=== PATIENT | male | born 1955 | race Caucasian/White ===

== ENCOUNTER 2019-02-28 10:42 | Inpatient (IN) ==
[2019-02-28] MEDS ORDERED: Ipratropium/Albuterol Neb 3 ML IH ONE (10:52)
[2019-02-28] MEDS ORDERED: methylPREDNISolone 125 MG/2 ML VIAL IVP ONE (10:52)
[2019-02-28 11:21] LABS: Basophils # 0.1 K/mcL (0.0-0.2); Basophils % 0.5 %; Eosinophils # 0.2 K/mcL (0.0-0.6); Eosinophils % 1.1 %; Hematocrit 35.8 % (37.5-50.1); Hemoglobin 11.7 g/dL (12.9-16.9); Immature Granulocytes % 0.9 % (0-4); Lymphocytes # 1.4 K/mcL (0.6-4.6); Lymphocytes % 9.8 %; Mean Corpuscular HGB Conc 32.7 g/dL (31.6-35.5); Mean Corpuscular Hemoglobin 28.1 pg (28.0-33.3); Mean Corpuscular Volume 85.9 fL (83.0-100.0); Mean Platelet Volume 9.6 fL (9.4-12.4); Monocytes # 1.2 K/mcL (0.0-1.3); Monocytes % 8.4 %; Neutrophils # 11.3 K/mcL (1.6-8.9); Platelet Count 605 K/mcL (140-400); Red Blood Count 4.17 M/mcL (4.19-5.50); Red Cell Distribution Width 13.6 % (11.5-14.5); Segmented Neutrophils % 79.3 %; White Blood Count 14.3 K/mcL (4.3-11.1)
[2019-02-28] MEDS ORDERED: Isovue-370 500 ML BOTTLE IVP ONE (11:40)
[2019-02-28 11:44] LABS: BUN/Creatinine Ratio 18 (6-26); Blood Urea Nitrogen 11 mg/dL (8-23); Calcium 8.9 mg/dL (8.6-10.3); Carbon Dioxide 28 mEq/L (23-29); Chloride 95 mEq/L (98-107); Glucose 168 mg/dL (70-105); Osmolality,Calculated 273 (280-300); Potassium 3.6 mEq/L (3.5-5.1); Sodium 130 mEq/L (136-145); Troponin I < 0.03 ng/mL (< 0.04); eGFR For African Americans > 60 (> 60); eGFR For Non-African Americans > 60 (> 60)
[2019-02-28] MEDS ORDERED: cefTRIAXone 1,000 MG in Water for inj. (sterile) 10 ML IVP ONE (13:21)
[2019-02-28] MEDS ORDERED: Azithromycin 500 MG in 0.9 % Sodium Chloride 250 ML IVPB ONE (13:21)
--- NOTE | 2019-02-28 13:23 | Emergency Department Note ---
Disposition Clinical Impression: Dyspnea Qualifiers: Dyspnea type: unspecified Qualified Code(s): R06.00 - Dyspnea, unspecified Disposition: Admitted As Inpatient Condition: Fair Time of Disposition: 13:39 General Adult HPI - General Chief complaint: ED Shortness of Breath/Dyspnea Stated complaint: SARWAT Time Seen by Provider: 02/28/19 10:44 Source: patient, EMS Mode of arrival: private vehicle Limitations: no limitations Nursing Notes Reviewed: Yes Vital Signs Reviewed: Yes - History of Present Illness HPI Narrative: 63-year-old male who had lung cancer and states that he "beat lung cancer" proximal probably 5 years ago that reports he has had increasing shortness of breath and difficulty breathing which has been going on over the last 2 weeks to 3 weeks. Patient reports he has not been seen by in 5 years but he occasionally uses his 's inhaler whenever he feels short of breath. He does note some increased white sputum production over the last several weeks. He denies any fevers or chills. He states that he has been working on his motor and laying down a lot so he was worried that he might of got pneumonia from that. Pain Scale: 7 - Related Data Home Medications Medication Instructions Recorded Confirmed Ipratropium/Albuterol Neb [Duoneb] 3 ml IH BID 02/28/15 01/12/17 Prochlorperazine Maleate 10 mg PO Q6HR PRN 02/28/15 01/12/17 [Compazine] Previous Rx's Medication Instructions Recorded Lactose-Reduced Food [Ensure 1 bottle PO TID #90 can 07/30/15 Original] Albuterol Sulfate [Proventil Hfa] 17 gm IH Q4-6H PRN #1 hfa.aer.ad 10/21/15 Sertraline [Zoloft] 100 mg PO DAILY #30 tablet 04/14/16 Albuterol Sulfate [Ventolin Hfa] 8 gm IH BID PRN #1 hfa.aer.ad 11/10/16 Docusate Sodium 2 tab PO DAILY PRN #60 capsule 11/10/16 Magic Mouthwash 5 - 10 ml PO TID PRN #480 ml 11/10/16 Allergies Allergy/AdvReac Type Severity Reaction Status Date / Time Penicillins Allergy Unknown Rash Verified 06/18/16 13:04 Review of Systems: In addition to that documented in the HPI above, the additional ROS was obtained: Constitutional: Denies fevers or chills Eyes: Denies vision changes ENMT: Denies sore throat CV: Denies chest pain Resp: Reports SOB and increased sputum production GI: Denies vomiting or diarrhea : Denies painful urination MSK: Denies recent trauma Skin: Denies new rashes Neuro: Denies new numbness or tingling or weakness Endocrine: Denies unexpected weight loss Heme: Denies bleeding disorders Past Medical History - Past Medical History Attestation: Yes The following information was validated with the patient. Medical history: Reports: cancer - Social History Smoking Status: Current some day smoker Alcohol use: Reports: none Drug use: Reports: none Physical Exam General: A&O x 3. No acute distress. Well developed, well nourished. Head: atraumatic, normocephalic. ENT: No conjunctival injection, no scleral icterus. PERRLA. EOMI. Oropharynx non- erythematous. mucous membranes moist. Neuro: No focal deficits, no speech deficit, no facial droop, mentating well. BUE/BLE Str 5/5. Pulm: Decreased lung sounds on the right, with wheezing appreciated in right middle and right upper lobe. Patient also has diffuse end expiratory wheezing diffusely. Cardio: Tachycardia. Chest not tender to palpation. Abd: Soft, non-distended. Normoactive bowel sounds. Non-tender to palpation. No guarding. Non rigid. Extremities: Radial pulses 2+ mallorie, dorsalis pedis/posterior tibialis 2+ mallorie. No LE edema. No cyanosis, clubbing. Skin: warm, dry, intact. No rashes. Psych: Appropriate mood and affect. Answers questions appropriately. Cooperative with exam. - General Limitations: no limitations General appearance: alert, in no apparent distress Course Vital Signs Temperature 99.2 F 02/28/19 10:47 Pulse Rate 110 02/28/19 10:47 Respiratory Rate 19 02/28/19 10:47 Blood Pressure 107/81 02/28/19 10:47 O2 Sat by Pulse Oximetry 99 02/28/19 10:47 Temperature 97.9 F 02/28/19 15:21 Pulse Rate 95 02/28/19 15:21 Respiratory Rate 24 02/28/19 15:21 Blood Pressure 100/72 02/28/19 15:21 O2 Sat by Pulse Oximetry 94 02/28/19 15:21 Oxygen Delivery Oxygen Delivery Room Air Medical Decision Making - MDM Narrative Medical decision making narrative: 63-year-old male with past medical history of lung cancer that was in remission as of 5 years ago but has not been seen by a doctor since then who reports increasing shortness of breath over the last 2-3 weeks. He was worried he has pneumonia, we will obtain a CBC, BMP, lactic acid, blood cultures, chest x-ray, EKG. Additionally given patient's tachycardia there is some concern that he may have a blood clot so we will obtain a CTA given his high risk. Patient CTA was negative for blood clot but did show a mass at the hilum that was suspicious for malignancy. Distally there was some fluid within the lungs that was concerning for pulmonary effusion could not be distinguished from infection. Patient was treated with 3 DuoNeb's, 125 of Solu-Medrol, as well as antibiotics. Patient remained somewhat tachycardic and dyspneic while he was in the department, patient was admitted to the hospitalist Dr. Newton who agreed to accept the patient to his service. Results of the workup including any imaging and/or labwork was shared with the patient at bedside. Patient was given an opportunity to ask questions at bedside and all of their concerns were addressed. Patient verbalized understanding and agreement with plan of care. Pt remained stable while in the department. - Medical Records Medical records reviewed: Yes I reviewed the patient's medical records. - Lab Data Lab results reviewed: Yes I reviewed the patient's lab results. Result diagrams: 02/28/19 11:01 02/28/19 11:01 Lab Results 02/28/19 02/28/19 02/28/19 Range/Units 11:01 11:01 11: WBC 14.3 H (4.3-11.1) K/mcL RBC 4.17 L (4.19-5.50) M/mcL Hgb 11.7 L (12.9-16.9) g/dL Hct 35.8 L (37.5-50.1) % MCV 85.9 (83.0-100.0) fL MCH 28.1 (28.0-33.3) pg MCHC 32.7 (31.6-35.5) g/dL RDW 13.6 (11.5-14.5) % Plt Count 605 H (140-400) K/mcL MPV 9.6 (9.4-12.4) fL Immature Gran % 0.9 (0-4) % Seg Neutrophils % 79.3 % Lymphocytes % 9.8 % Monocytes % 8.4 % Eosinophils % 1.1 % Basophils % 0.5 % Neutrophils # 11.3 H (1.6-8.9) K/mcL Lymphocytes # 1.4 (0.6-4.6) K/mcL Monocytes # 1.2 (0.0-1.3) K/mcL Eosinophils # 0.2 (0.0-0.6) K/mcL Basophils # 0.1 (0.0-0.2) K/mcL Sodium 130 L (136-145) mEq/L Potassium 3.6 (3.5-5.1) mEq/L Chloride 95 L (98-107) mEq/L Carbon Dioxide 28 (23-29) mEq/L BUN 11 (8-23) mg/dL Creatinine 0.62 L (0.70-1.30) mg/dL Est GFR ( Amer) > 60 (> 60) Est GFR (Non-Af Amer) > 60 (> 60) BUN/Creatinine Ratio 18 (6-26) Glucose 168 H (70-105) mg/dL Calculated Osmolality 273 L (280-300) Lactic Acid 1.9 (0.5-2.2) mmol/L Calcium 8.9 (8.6-10.3) mg/dL Troponin I < 0.03 (< 0.04) ng/mL B-Natriuretic Peptide (Less than 100) pg/mL Procalcitonin (0.00-0.15) ng/mL 02/28/19 02/28/19 Range/Units 11:01 11:01 WBC (4.3-11.1) K/mcL RBC (4.19-5.50) M/mcL Hgb (12.9-16.9) g/dL Hct (37.5-50.1) % MCV (83.0-100.0) fL MCH (28.0-33.3) pg MCHC (31.6-35.5) g/dL RDW (11.5-14.5) % Plt Count (140-400) K/mcL MPV (9.4-12.4) fL Immature Gran % (0-4) % Seg Neutrophils % % Lymphocytes % % Monocytes % % Eosinophils % % Basophils % % Neutrophils # (1.6-8.9) K/mcL Lymphocytes # (0.6-4.6) K/mcL Monocytes # (0.0-1.3) K/mcL Eosinophils # (0.0-0.6) K/mcL Basophils # (0.0-0.2) K/mcL Sodium (136-145) mEq/L Potassium (3.5-5.1) mEq/L Chloride (98-107) mEq/L Carbon Dioxide (23-29) mEq/L BUN (8-23) mg/dL Creatinine (0.70-1.30) mg/dL Est GFR ( Amer) (> 60) Est GFR (Non-Af Amer) (> 60) BUN/Creatinine Ratio (6-26) Glucose (70-105) mg/dL Calculated Osmolality (280-300) Lactic Acid (0.5-2.2) mmol/L Calcium (8.6-10.3) mg/dL Troponin I (< 0.04) ng/mL B-Natriuretic Peptide 89 (Less than 100) pg/mL Procalcitonin 0.27 H (0.00-0.15) ng/mL - Radiology Data Radiology results reviewed: Yes I reviewed the patient's radiology results. Chest X-Ray 02/28/19 11:05 IMPRESSION: 1. Right suprahilar opacities, which may represent pneumonia or post radiation change. 2. Scarring and atelectasis at the right lung base with possible small right pleural effusion. D/ / Chavez Loo MD / Chavez Loo MD Interpreting Provider: Chavez Loo MD Chest CTA 02/28/19 12:43 IMPRESSION: Masslike opacity within the right hilum and lower lobe which is concerning for malignancy and possibly superimposed infectious process. Loculated right-sided pleural effusion. Pretracheal and subcarinal lymphadenopathy. 1.1 cm left upper lobe nodule. 7 mm left lower lobe nodule. D/ / Antione Torrez MD / Antione Torrez MD Interpreting Provider: Antione Torrez MD - EKG Data EKG #1 EKG attestation: Yes I reviewed and interpreted this EKG. EKG results narrative: Heart rate 106, rhythm sinus tachycardia, axis normal. Intervals within normal limits. No ST segment elevation or depression noted. When compared with previous EKG dated 10/17/2014 the previous EKG shows sinus rhythm with septal ST elevation which is not noted on the current study. Attestation Statement - Attestation Attestation: I, Adrian Brown, examined this patient and my medical decision-making was reviewed with the LINER MAN/PA/Advanced Practice Nurse/Resident Physician. I agree with the documented findings, disposition and treatment plan as described except to the extent set forth below. 63-year-old male presents emergency Department with concerns of increasing shortness of breath. Patient states symptoms have been worsening over the past week. Patient reports a cough that is productive of yellow-green sputum. He has a history of lung cancer however states that he is "cancer free" as of 2012. He has not followed up since that time. CTA of the chest today does not show evidence of acute PE however it shows that he has a mass consistent with malignancy with possible superimposed infection. He has elevation of his white blood cell count. He started on antibiotics in the emergency department for possible community-acquired pneumonia. He will be admitted to the hospitalist for further care and evaluation for continuation of care of both his possible infection and is likely malignancy. Patient was updated regarding the CT and laboratory results.
[2019-02-28] MEDS ORDERED: Naloxone 0.4 MG/ML INJ IVP PRN (14:41)
[2019-02-28] MEDS ORDERED: traMADol 50 MG TABLET PO PRN (14:41)
[2019-02-28] MEDS ORDERED: Levalbuterol Neb 0.63 MG/3 ML IH PRN (14:45)
--- NOTE | 2019-02-28 15:34 | Pulmonology Consult Note ---
Date of Encounter: 02/28/19 Time of Encounter: 15:33 Assessment and Plan (1) Hilar mass Current Visit: Yes Status: Acute I reviewed his CT scan and clearly malignancy remains high in the differential. And I suspect that he has had reoccurrence or new primary tumor. He also has a lung nodule on the left which may be indicative of metastatic disease. Patient will benefit from undergoing bronchoscopy with endobronchial ultrasound for evaluation of the right lung mass as well as the enlarged lymph nodes. We will try to get this scheduled tomorrow but at this point I cannot definitively say and telemetry discussed with her interventional turning machine operator about when this procedure can be done. Would keep nothing by mouth at midnight for this reason and if we can schedule I will alert the patient personally in the morning as not to interrupt his diet unnecessarily. (2) Pleural effusion Current Visit: Yes Status: Acute This is a loculated right-sided pleural effusion which in this context could be a complicated process as empyema or complicated effusion recommend aspiration by interventional radiology for further evaluation. At this point I think it empyema is less likely given clinical presentation but it is possible. Please send the following studies including cytology, cell count and Gram stain culture LDH total protein pH and glucose (3) Pneumonia Current Visit: Yes Status: Acute Likely postobstructive pneumonia he is on antimicrobial coverage for community associated organisms which is reasonable at this time. Was recommended 70 percussive tone and MRSA nasal swab strep and legionella urinary antigens along with basic Gram stain from sputum. Blood cultures if not already obtained. Qualifiers: Laterality: right Lung location: unspecified part of lung Qualified Code(s): J18.9 - Pneumonia, unspecified organism (4) COPD exacerbation Current Visit: Yes Status: Acute Recommend scheduling of prednisone 40 mg orally to be given daily while inpatient start Symbicort 160/4.52 puffs twice a day and would also recommend initiation of a duo nebs every 6 hours with hourly albuterol as needed (5) History of lung cancer Current Visit: Yes Status: Acute (6) Tobacco abuse Current Visit: Yes Status: Acute Tobacco cessation counseling given Thank you for the consultation pulmonary will continue to follow History of Present Illness Consult date: 02/28/19 Requesting physician: Clifton Ross Reason for consult: pleural effusion, abnormal CXR/CT Chief complaint: difficulty in breathing History of present illness: This is a very pleasant 63-year-old gentleman with a past medical history significant for COPD as well as tobacco abuse he smoked since his early 20s up to a pack a day he has been trying to quit in fact he was successfully quit in the past but has come back to smoking he has been tobacco free for the last 4 days encouragingly he tells me. He has a history of non-small cell lung cancer stage IIIa status post chemoradiation that was completed 2012. He had surveillance scans seventh 2016 which were clear but in any 17 he has had a right hilar prominence that was noted on a CT scan which is followed up by PET scan which was negative for uptake there is no follow-up to this scan after that that I can see. He presents today for increasing shortness of breath over the last 4 days with cough and some sputum production denies any hemoptysis or unintentional weight loss during this time denies any fevers he has had some increased temperature at night subjectively but denies any drenching night sweats. 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 Patient to the emergency Department or CT angiogram was performed notable for a right hilar mass with associated infiltrative changes and also a loculated right-sided pleural effusion pulmonary consult for further evaluation Past Med Surg Social Fam HX - Past Medical History Medical history: cancer Additional medical history: lung cancer [id number] - Social History Smoking Status: Current some day smoker Alcohol use: none Drug use: none Medications and Allergies Ipratropium/Albuterol Neb [Duoneb] 3 ml IH BID 02/28/15 [History] Prochlorperazine Maleate [Compazine] 10 mg PO Q6HR PRN 02/28/15 [History] Lactose-Reduced Food [Ensure Original] 1 bottle PO TID #90 can 07/30/15 [Rx] Albuterol Sulfate [Proventil Hfa] 17 gm IH Q4-6H PRN #1 hfa.aer.ad 10/21/15 [Rx] Sertraline [Zoloft] 100 mg PO DAILY #30 tablet 04/14/16 [Rx] Albuterol Sulfate [Ventolin Hfa] 8 gm IH BID PRN #1 hfa.aer.ad 11/10/16 [Rx] Docusate Sodium 2 tab PO DAILY PRN #60 capsule 11/10/16 [Rx] Magic Mouthwash 5 - 10 ml PO TID PRN #480 ml 11/10/16 [Rx] Allergy/AdvReac Type Severity Reaction Status Date / Time Penicillins Allergy Unknown Rash Verified 06/18/16 13:04 All Systems: The remainder of the systems were reviewed and are negative Physical Examination Vital Signs: Vital Signs, Last 4 Hours Temp Pulse Resp BP Pulse Ox 02/28/19 15:21 97.9 F 95 24 100/72 94 02/28/19 14:48 19 110/69 02/28/19 12:54 106 22 107/67 96 General appearance: no acute distress Eyes: nonicteric ENT: other (Poor dentition) Neck: supple Effort: mildly labored Auscultation: bilateral: other (Air entry bilaterally he does have faint expiratory wheeze scattered rhonchi appreciated on the right greater than left) Cardiovascular: regular rate and rhythm Gastrointestinal: normoactive bowel sounds, soft, non-tender Integumentary: normal Extremities: no cyanosis, no edema, no clubbing Musculoskeletal: no deformities normal mental status, non-focal exam anxious Results - Laboratory Findings CBC and BMP: 02/28/19 11:01 02/28/19 11:01 Abnormal lab findings: Abnormal lab results WBC 14.3 K/mcL (4.3-11.1) H 02/28/19 11:01 RBC 4.17 M/mcL (4.19-5.50) L 02/28/19 11:01 Hgb 11.7 g/dL (12.9-16.9) L 02/28/19 11:01 Hct 35.8 % (37.5-50.1) L 02/28/19 11:01 Plt Count 605 K/mcL (140-400) H 02/28/19 11:01 Neutrophils # 11.3 K/mcL (1.6-8.9) H 02/28/19 11:01 Sodium 130 mEq/L (136-145) L 02/28/19 11:01 Chloride 95 mEq/L (98-107) L 02/28/19 11:01 Creatinine 0.62 mg/dL (0.70-1.30) L 02/28/19 11:01 Glucose 168 mg/dL (70-105) H 09/18/19 11:01 Calculated Osmolality 273 (280-300) L 02/28/19 11:01 - Microbiology Findings Microbiology Findings: Microbiology, Last 48 Hours 02/28/19 11:27 Blood Culture - Preliminary Peripheral Venipuncture Culture is incubating and being continuously monitored for growth. Final report to follow. 02/28/19 11:01 Blood Culture - Preliminary Peripheral Venipuncture Culture is incubating and being continuously monitored for growth. Final report to follow. - Diagnostic Findings Chest x-ray: report reviewed, image reviewed CT scan - chest: report reviewed, image reviewed - Clinical Findings Intake & Output: Intake & Output 02/27/19 02/28/19 02/28/19 23:59 07:59 15:59 Intake Total 260 / 260 Balance 260 / 260 Weight 68.538 kg Consult Discharge Plan - Plan Referrals: NONE,PCP [Primary Care Provider] -
[2019-02-28 16:07] LABS: INR 1.4; Prothrombin Time 15.9 Seconds (9.4-12.1)
--- NOTE | 2019-02-28 16:23 | Internal Med History&Physical ---
Date of Encounter: 02/28/19 Time of Encounter: 16:18 Internal Medicine - H&P: HPI Chief complaint: shortness of breath. Plans for Post Hospital Care: Home History of present illness: Mr. Ventura is a 63 year old male PMH of non-small cell lung ca, never stopped smoking. tobacco abuse, and CVA. Patient presented to the ED due to shortness of breath. Reported for the past 7-10 days he has been getting progressively more short of breath, stated now he cannot even walk to get his mail without getting short of breath, reported subjective fever and productive cough of white/creamy sputum. He also reported subjective weight lost of about 5-10 pounds for the past month. Denies orthopnea or edema of the lower extremities. Patient reported tobacco abuse for more than 35 years, started he was diagnosed with non-small cell lung cancer in 2012 and received chemotherapy and radiation therapy, in 2014 he was told he was cancer free, and was being followed up with [facility] studies. last PET scan done 01/06/17 Soft tissue prominence of the right hilum which appears slightly increased since 10/17/2016, but demonstrates no significant increased FDG uptake. Given appearance on the prior PET-CT, recurrent tumor cannot be entirely excluded, and continued surveillance is recommended. Today a CTA done in the ED showed Masslike opacity within the right hilum and lower lobe which is concerning for malignancy and possibly superimposed infectious process. Loculated right-sided pleural effusion. Pretracheal and subcarinal lymphadenopathy. Hospitalist team called for management and coordination of care. Past Med Surg Social Fam HX - Past Medical History Medical history: cancer Additional medical history: lung cancer [id number] - Social History Smoking Status: Current some day smoker Alcohol use: none Drug use: none Internal Medicine - H&P: Meds Ipratropium/Albuterol Neb [Duoneb] 3 ml IH BID 02/28/15 [History] Prochlorperazine Maleate [Compazine] 10 mg PO Q6HR PRN 02/28/15 [History] Lactose-Reduced Food [Ensure Original] 1 bottle PO TID #90 can 07/30/15 [Rx] Albuterol Sulfate [Proventil Hfa] 17 gm IH Q4-6H PRN #1 hfa.aer.ad 10/21/15 [Rx] Sertraline [Zoloft] 100 mg PO DAILY #30 tablet 04/14/16 [Rx] Albuterol Sulfate [Ventolin Hfa] 8 gm IH BID PRN #1 hfa.aer.ad 11/10/16 [Rx] Docusate Sodium 2 tab PO DAILY PRN #60 capsule 11/10/16 [Rx] Magic Mouthwash 5 - 10 ml PO TID PRN #480 ml 11/10/16 [Rx] Allergy/AdvReac Type Severity Reaction Status Date / Time Penicillins Allergy Unknown Rash Verified 06/18/16 13:04 All Systems PM: A 10-system review of systems was performed and is negative for pertinent findings except as documented above in the HPI. - Constitutional Constitutional: fever(s) (subjective. ), weight loss, no chills, no malaise - EENT Nose, mouth and throat: no change in voice - Cardiovascular Cardiovascular ROS IM: dyspnea on exertion, no chest pain, no lightheadedness, no orthopnea, no paroxysmal nocturnal dyspnea - Respiratory Respiratory: cough, no wheezing, no pain on inspiration, no excessive phlegm production - Gastrointestinal Gastrointestinal: no abdominal pain, no nausea, no vomiting - Genitourinary Genitourinary ROS male: no dysuria, no urinary frequency, no urinary incontinence - Musculoskeletal Musculoskeletal ROS IM: no atrophy, no numbness - Integumentary Integumentary IM: no erythema - Neurological Neurological ROS: no headache(s) - Psychiatric Psychiatric: no anxiety, no hallucinations - Endocrine Endocrine IM: no cold intolerance, no excessive sweating, no heat intolerance - Hematologic/Lymphatic Hematologic/Lymphatic: no lymphadenopathy - Allergic/Immunologic Allergic/Immunologic: no GI upset with certain foods - Constitutional Vitals: Temp Pulse Resp BP Pulse Ox 97.9 F 95 24 100/72 94 02/28/19 15:21 02/28/19 15:21 02/28/19 15:21 02/28/19 15:21 02/28/19 15:21 Exam: Vitals: reviewed General: Alert and oriented x4. In mild distress due to shortness of breath. Skin: Normal color, no rash, no lesions. HEENT: EOM, pupils equal, round and reactive. Cardiovascular: RRR, normal S1 & S2, no rubs, murmurs or gallops. Lungs: minimal expiratory wheezes b/l, no rales or crackles. Abdomen: Soft, non-tender, no rigidity. Extremities: No deformity, no edema or tenderness, no joint swelling or clubbing. Neurological: Normal cognition and motor skills. Rest of the physical exam is non contributory Internal Med - H&P Results - Labs CBC & Chem 7: 02/28/19 11:01 02/28/19 11:01 Labs: Short CBC 02/28/19 Range/Units 11:01 WBC 14.3 H (4.3-11.1) K/mcL Hgb 11.7 L (12.9-16.9) g/dL Hct 35.8 L (37.5-50.1) % Plt Count 605 H (140-400) K/mcL Neutrophils # 11.3 H (1.6-8.9) K/mcL BMP 02/28/19 11:01 Sodium 130 L Potassium 3.6 Chloride 95 L Carbon Dioxide 28 BUN 11 Creatinine 0.62 L Glucose 168 H Calcium 8.9 Cardiac Enzymes 02/28/19 Range/Units 11:01 Troponin I < 0.03 (< 0.04) ng/mL - Impressions ITS Impressions Chest X-Ray 02/28/19 11:05 IMPRESSION: 1. Right suprahilar opacities, which may represent pneumonia or post radiation change. 2. Scarring and atelectasis at the right lung base with possible small right pleural effusion. D/ / Chavez Loo MD / Chavez Loo MD Interpreting Provider: Chavez Loo MD Chest CTA 02/28/19 12:43 IMPRESSION: Masslike opacity within the right hilum and lower lobe which is concerning for malignancy and possibly superimposed infectious process. Loculated right-sided pleural effusion. Pretracheal and subcarinal lymphadenopathy. 1.1 cm left upper lobe nodule. 7 mm left lower lobe nodule. D/ / Antione Torrez MD / Antione Torrez MD Interpreting Provider: Antione Torrez MD - Diagnostic Studies Chest x-ray Status: image reviewed by me (right hiliar opacities.) - Assessment and Plan (1) Loculated pleural effusion Current Visit: Yes Status: Acute Assessment and plan: CT/CT angio chest IMPRESSION: Masslike opacity within the right hilum and lower lobe which is concerning for malignancy and possibly superimposed infectious process. Plan patient started on broad spectrum IV antibiotics. IR consulted for thoracenthesis, fluids will be sent for analysis sputum culture and gram stain ordered (2) DVT prophylaxis Current Visit: Yes Status: Acute Assessment and plan: heparin subq. (3) COPD exacerbation Current Visit: Yes Status: Acute Assessment and plan: patient with long Hx of tobacco abuse. started on bronchodilators Q4RT scheduled and steroids taper. incentive spirometry. patient would benefit for outpatient PFTs study. (4) Hilar mass Current Visit: Yes Status: Acute Assessment and plan: CT/CT angio chest IMPRESSION: Masslike opacity within the right hilum and lower lobe which is concerning for malignancy and possibly superimposed infectious process. Plan: Patient with a Hx of non-small cell lung CA, treated with chemo and radiation from [id number]. Pulmonology has been consulted for possible bronchoscopy with Biopsy. will consider Hem&Onc consult following Pulm evaluation. (5) Tobacco abuse Current Visit: Yes Status: Acute Assessment and plan: counseling and education regarding smoking cessation offered - Time Spent With Patient Total time spent is greater than 50% in coordination of care (as documented) at patient's floor/unit and/or counseling patient: Greater than 35 minutes (50)
[2019-02-28 16:42] LABS: Estimated Average Glucose 137 mg/dl
[2019-02-28] MEDS: Ipratropium/Albuterol Neb 3 ML IH SCH ×3 (18:11→23:28)
[2019-02-28] MEDS: MethylPREDNISolone 40 MG/ML VIAL IVP SCH (18:35)
[2019-02-28] MEDS ORDERED: Chloraseptic Spray 177 ML BOTTLE MM PRN (21:25)
[2019-02-28] MEDS ORDERED: Menthol 9.1 MG LOZENGE PO PRN (21:26)
[2019-02-28] MEDS: *HR* Heparin 5,000 UNIT/ML VIAL SQ SCH (22:33)
[2019-03-01] MEDS: Ipratropium/Albuterol Neb 3 ML IH SCH ×5 (03:37→19:39)
[2019-03-01 05:51] LABS: Basophils % 0.1 %; Hematocrit 37.4 % (37.5-50.1); Hemoglobin 11.9 g/dL (12.9-16.9); Immature Granulocytes % 0.8 % (0-4); Lymphocytes # 1.1 K/mcL (0.6-4.6); Mean Corpuscular HGB Conc 31.8 g/dL (31.6-35.5); Mean Corpuscular Hemoglobin 27.4 pg (28.0-33.3); Mean Corpuscular Volume 86.2 fL (83.0-100.0); Mean Platelet Volume 10.2 fL (9.4-12.4); Monocytes # 0.6 K/mcL (0.0-1.3); Monocytes % 3.4 %; Neutrophils # 14.5 K/mcL (1.6-8.9); Platelet Count 597 K/mcL (140-400); Red Blood Count 4.34 M/mcL (4.19-5.50); Red Cell Distribution Width 13.5 % (11.5-14.5); Segmented Neutrophils % 88.7 %; White Blood Count 16.3 K/mcL (4.3-11.1)
[2019-03-01 05:56] LABS: BUN/Creatinine Ratio 30 (6-26); Blood Urea Nitrogen 15 mg/dL (8-23); Calcium 9.4 mg/dL (8.6-10.3); Carbon Dioxide 25 mEq/L (23-29); Chloride 102 mEq/L (98-107); Glucose 150 mg/dL (70-105); Magnesium 2.2 mg/dL (1.6-2.6); Osmolality,Calculated 286 (280-300); Phosphorous 3.5 mg/dL (2.7-4.5); Sodium 136 mEq/L (136-145); eGFR For African Americans > 60 (> 60); eGFR For Non-African Americans > 60 (> 60)
[2019-03-01] MEDS: *HR* Heparin 5,000 UNIT/ML VIAL SQ SCH ×3 (06:05→22:38)
[2019-03-01] MEDS: MethylPREDNISolone 40 MG/ML VIAL IVP SCH (06:16)
--- NOTE | 2019-03-01 06:54 | Electrocardiograph Report ---
[facility] Test Date: 2019-02-28 Pat Name: Daniel Ventura Department: EXAM8 Room: 2NE23 Gender: M Rn Wellness: : 1955 Requested By: Adrian Brown Order Number: [id number] Reading MD: Alhaji Huff Measurements Intervals Grants Rate: 106 P: 76 MN: 148 QRS: 72 QRSD: 85 T: 62 QT: 318 QTc: 423 Interpretive Statements Sinus tachycardia Electronically Signed On 03-01-2019 6:52:33 EDT by Alhaji Huff
[2019-03-01] MEDS ORDERED: *HR* Propofol 200 MG/20 ML VIAL IVP ONE ×2 (08:45→08:55)
[2019-03-01] MEDS ORDERED: *HR* Rocuronium Bromide 50 MG/5 ML VIAL ONE (08:45)
[2019-03-01] MEDS ORDERED: *HR* Succinylcholine 200 MG/10 ML VIAL IVP ONE (08:45)
[2019-03-01] MEDS ORDERED: Ondansetron 4 MG/2 ML VIAL ONE (08:45)
[2019-03-01] MEDS ORDERED: *HR* FentaNYL (PF) 100 MCG/2 ML VIAL ONE (08:45)
[2019-03-01] MEDS ORDERED: Dexamethasone 4 MG/ML VIAL ONE ×2 (08:45→08:48)
[2019-03-01] MEDS ORDERED: Lidocaine -MPF 2% 2 ML VIAL ONE (08:45)
[2019-03-01] MEDS ORDERED: Lidocaine -MPF 4% 5 ML AMPUL ONE (08:49)
--- NOTE | 2019-03-01 08:56 | Anesthesia Evaluation PreOp ---
Date of Encounter: 03/01/19 Time of Encounter: 09:16 - Past History Planned Operation: EBUS Cardiac History: Denies any Significant Hx Pulmonary History: Smoker, Pack/yr (>35), COPD, Other (nonsmall cell cancer s/p chemo/xrt, current pneumonia, pleural effusion) CPC CODER History: CVA Other Medical History: Other (wt loss) Anesthesia History: Past Anesthesia (none) Alcohol Use: none Drug use: none Medications and Allergies No Known Home Drugs 02/28/19 [History] Allergy/AdvReac Type Severity Reaction Status Date / Time Penicillins Allergy Unknown Rash Verified 02/28/19 21:50 - Meds/Allergy Pre-op Review Medications Reviewed: Yes Allergies Reviewed: Yes Beta Blockers on Current Med List: No Anesthesia Results - Labs 03/01/19 04:56 03/01/19 04:56 - Imaging EKG: report reviewed (Sinus tachycardia) Additional studies: ct chest: CT/CT chest w con IMPRESSION: Increased soft tissue thickening along the posterior margin of the right hilum as compared to prior exam dated 10/17/2014. Differential considerations include progressive post radiation change or residual or recurrent malignancy given patient history. PET-CT may be helpful for further characterization. Mural thickening of the esophagus, suggestive of esophagitis. PET scan: PE/PET CT fusion skull to thigh IMPRESSION: 1. Soft tissue prominence of the right hilum which appears slightly increased since 10/17/2016, but demonstrates no significant increased FDG uptake. Given appearance on the prior PET-CT, recurrent tumor cannot be entirely excluded, and continued surveillance is recommended. 2. Minimally hypermetabolic mediastinal and bilateral hilar lymph nodes which are nonspecific. 3. No other areas of abnormal FDG uptake to suggest metastatic disease. 4. Diffuse circumferential bladder wall thickening which is nonspecific and may be related to bladder outlet obstruction or infection. 5. Emphysematous changes. Anesthesia Exam Selected Entries 03/01/19 08:16 Temperature 97.7 F Pulse Rate 97 Respiratory Rate 20 Blood Pressure 113/78 O2 Sat by Pulse Oximetry 94 Oxygen Flow Rate (LPM) 2 Oxygen Delivery Method Nasal Cannula Weight: 69kg NPO (# of Hours): 8 - HEENT Pupil (Motor): EOMI Mallampati: II Teeth: Edentulous Oral Opening: Greater than 3 - CPC CODER LOC: Oriented CPC CODER Motor: Normal RUE, Normal LUE, Normal RLE, Normal LLE, Normal Face CPC CODER Sensory: Normal: RUE, LUE, RLE, LLE, Face - Cardiac Rhythm: Regular Murmur: None - Pulmonary Breath Sounds: bilateral Clear (diminished) Respiratory Effort: Labored (mild) Anesthesia Assess/Plan ASA Score: 4 Level of consciousness: Cooperative, Oriented Anesthetic Plan: General Monitoring Plan: Standard Monitors (agrees to GA) Recovery Plan: PACU
--- NOTE | 2019-03-01 10:01 | Pulmonology Progress Note ---
<Torsten Sidhu - Last Filed: 03/01/19 15:45> Date of Encounter: 03/01/19 Time of Encounter: 09:00 Assessment and Plan (1) COPD exacerbation Current Visit: Yes Status: Acute Patient has a known history of COPD Is in an acute exacerbation currently Diffuse wheeze on exam, minimal improvement from yesterday History of Tobacco Abuse, reports he stopped smoking 5 days ago Plan: -Continue albuterol/symbicort/duonebs -May increase duonebs if necessary, currently Q6hrs -Supplement O2 -Continue Steroids (2) Hilar mass Current Visit: Yes Status: Acute CT Chest shows pretracheal and subcarinal lymphadenopathy with lung nodules and hilar mass Possible recurrence of previous lung cancer vs new primary tumor Underwent Bronchoscopy today, BAL results pending Oncology Consult placed Plan: -Continue to treat for symptomatic COPD Exacerbation -F/U BAL results/cytology -Further plan according to oncology (3) Loculated pleural effusion Current Visit: Yes Status: Acute As identified on CT Chest Thoracentesis performed today Pleural studies indicate exudative effusion Etiology likely 2/2 malignancy (4) Pneumonia Current Visit: Yes Status: Acute Likely post-obstructive PNA Procalcitonin elevated 0.27 on admission Currently on Levaquin/Rocephin/Zithromycin Vitals Stable, afebrile WBC increased today to 16.3 Plan: -Continue current ABX -MRSA swab not performed -urinary antigens blood cultures not resulted, F/U Qualifiers: Laterality: right Lung location: unspecified part of lung Qualified Code(s): J18.9 - Pneumonia, unspecified organism (5) Tobacco abuse Current Visit: Yes Status: Acute Subjective Interval history: Patient was seen and examined this morning at bedside. Patient underwent bronchoscopy this morning without complication. Reports mild symptomatic improvement since yesterday. Denies sputum production or hemoptysis but admits to recently progressively worsening cough. Currently requiring 2Lo2 to maintain greater than 88% SpO2. Objective PUL Vital signs: Last Vital Signs Temp 98.1 F 03/01/19 09:16 Pulse 99 03/01/19 09:16 Resp 22 03/01/19 09:16 BP 102/69 03/01/19 09:16 Pulse Ox 96 03/01/19 09:16 Gen: Alert and oriented, NAD, Vitals stable. Head: atraumatic normocephalic Eyes: anicteric sclera, EOMI ENT: mucous membranes moist Neck: trachea midline, no palpable lymphadenopathy CV: RRR, no murmrus gallops rubs Resp: Diffuse wheeze on exam, no crackles or rhonchi, nonlabored breathing Ext: no peripheral edema, no rash, no clubbing, no cyanosis Results - Laboratory Findings CBC and BMP: 03/01/19 04:56 03/01/19 13:14 PT/INR, D-dimer PT 15.9 Seconds (9.4-12.1) H 02/28/19 15:42 Abnormal lab findings: Abnormal lab results WBC 16.3 K/mcL (4.3-11.1) H 03/01/19 04:56 RBC 4.17 M/mcL (4.19-5.50) L 02/28/19 11:01 Hgb 11.9 g/dL (12.9-16.9) L 03/01/19 04:56 Hct 37.4 % (37.5-50.1) L 03/01/19 04:56 MCH 27.4 pg (28.0-33.3) L 03/01/19 04:56 Plt Count 597 K/mcL (140-400) H 03/01/19 04:56 Neutrophils # 14.5 K/mcL (1.6-8.9) H 03/01/19 04:56 PT 15.9 Seconds (9.4-12.1) H 02/28/19 15:42 Sodium 130 mEq/L (136-145) L 02/28/19 11:01 Chloride 95 mEq/L (98-107) L 02/28/19 11:01 Creatinine 0.50 mg/dL (0.70-1.30) L 03/01/19 04:56 BUN/Creatinine Ratio 30 (6-26) H 03/01/19 04:56 Glucose 150 mg/dL (70-105) H 03/01/19 04:56 Hemoglobin A1c 6.4 % (-5.6) H 02/28/19 15:42 Calculated Osmolality 273 (280-300) L 02/28/19 11:01 Procalcitonin 0.18 ng/mL (0.00-0.15) H 03/01/19 04:56 - Microbiology Findings Microbiology Findings: Microbiology, Last 48 Hours 02/28/19 11:27 Blood Culture - Preliminary Peripheral Venipuncture Culture is incubating and being continuously monitored for growth. Final report to follow. 02/28/19 11:01 Blood Culture - Preliminary Peripheral Venipuncture Culture is incubating and being continuously monitored for growth. Final report to follow. - Clinical Findings Intake & Output: Intake & Output 02/28/19 03/01/19 03/01/19 23:59 07:59 15:59 Intake Total 240 / 500 0 / 0 Output Total 120 / 120 0 / 120 Balance 240 / 500 -120 / -120 0 / -120 Weight 68.8 kg Consult Discharge Plan - Plan Additional Instructions: please call Dr. Ness office on the day of d/c to make follow up appt . The office will arrange the PET scan for the patient for him from there. [phone] (Nathalie) Referrals: NONE,PCP [Primary Care Provider] - <Frankie Kemp W - Last Filed: 03/01/19 16:10> Date of Encounter: 03/01/19 Assessment and Plan (1) Hilar mass Current Visit: Yes Status: Acute (2) Pleural effusion Current Visit: Yes Status: Acute (3) Pneumonia Current Visit: Yes Status: Acute Qualifiers: Laterality: right Lung location: unspecified part of lung Qualified Code(s): J18.9 - Pneumonia, unspecified organism (4) COPD exacerbation Current Visit: Yes Status: Acute (5) History of lung cancer Current Visit: Yes Status: Acute (6) Tobacco abuse Current Visit: Yes Status: Acute Objective PUL Vital signs: Last Vital Signs Temp 97.4 F L 03/01/19 15:43 Pulse 99 03/01/19 15:43 Resp 20 03/01/19 15:43 BP 118/73 03/01/19 15:43 Pulse Ox 97 03/01/19 15:43 Results - Laboratory Findings CBC and BMP: 03/01/19 04:56 03/01/19 13:14 PT/INR, D-dimer PT 15.9 Seconds (9.4-12.1) H 02/28/19 15:42 Abnormal lab findings: Abnormal lab results WBC 16.3 K/mcL (4.3-11.1) H 03/01/19 04:56 RBC 4.17 M/mcL (4.19-5.50) L 02/28/19 11:01 Hgb 11.9 g/dL (12.9-16.9) L 03/01/19 04:56 Hct 37.4 % (37.5-50.1) L 03/01/19 04:56 MCH 27.4 pg (28.0-33.3) L 03/01/19 04:56 Plt Count 597 K/mcL (140-400) H 03/01/19 04:56 Neutrophils # 14.5 K/mcL (1.6-8.9) H 03/01/19 04:56 PT 15.9 Seconds (9.4-12.1) H 02/28/19 15:42 Sodium 130 mEq/L (136-145) L 02/28/19 11:01 Chloride 95 mEq/L (98-107) L 02/28/19 11:01 Creatinine 0.50 mg/dL (0.70-1.30) L 03/01/19 04:56 BUN/Creatinine Ratio 30 (6-26) H 03/01/19 04:56 Glucose 373 mg/dL (70-105) H 03/01/19 13:14 Hemoglobin A1c 6.4 % (-5.6) H 02/28/19 15:42 Calculated Osmolality 273 (280-300) L 02/28/19 11:01 Total Bilirubin 0.2 mg/dL (0.3-1.0) L 03/01/19 13:14 Alkaline Phosphatase 125 Units/L (34-104) H 03/01/19 13:14 Serum Total Protein 6.2 g/dL (6.4-8.9) L 03/01/19 13:14 Albumin 2.7 g/dL (3.5-5.7) L 03/01/19 13:14 Albumin/Globulin Ratio 0.8 (1.1-2.2) L 03/01/19 13:14 Procalcitonin 0.18 ng/mL (0.00-0.15) H 03/01/19 04:56 Pleural Appearance Cloudy (Clear) A 03/01/19 09:10 Pleural RBC 0.019 M/mcL (0.000-0.002) H 03/01/19 09:10 Pleural Tot Nuc Cell 2897 TNC/mcL (0-1000) H 03/01/19 09:10 - Microbiology Findings Microbiology Findings: Microbiology, Last 48 Hours 03/01/19 10:08 Fungal Culture - Preliminary Right Upper Lobe Lung Culture is incubating. 03/01/19 09:10 Fungal Culture - Preliminary Pleural Fluid Culture is incubating. 03/01/19 09:10 Body Fluid Culture - Preliminary Pleural Fluid Culture is incubating. 03/01/19 10:08 Respiratory Culture - Preliminary Right Upper Lobe Lung Culture is incubating. 02/28/19 11:27 Blood Culture - Preliminary Peripheral Venipuncture Culture is incubating and being continuously monitored for growth. Final report to follow. 02/28/19 11:01 Blood Culture - Preliminary Peripheral Venipuncture Culture is incubating and being continuously monitored for growth. Final report to follow. - Clinical Findings Intake & Output: Intake & Output 03/01/19 03/01/19 03/01/19 07:59 15:59 23:59 Intake Total 0 / 0 Output Total 120 / 120 0 / 120 Balance -120 / -120 0 / -120 - Attending Attestation I examined this patient and my medical decision-making was reviewed with the Resident Physician. I agree with the documented findings, disposition and treatment plan as described except to the extent set forth below. We independently had [id number] contact with the patient Patient seen and examined at bedside Labs, radiology, chart personally reviewed. 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 He will benefit from continued treatment for pneumonia he is on antibiotics pending cultures. Clinically quite stable. Pleural effusion consistent with exudative process but does not appear to be empyema or parapneumonic in nature likely malignant we will follow up on cytology. Agree with continued treatment for COPD exacerbation including systemic glucocorticoids and bronchodilators.
[2019-03-01] MEDS ORDERED: *HR* EPINEPHrine 1 MG/10 ML SYRINGE INTRATRACH PRN (10:04)
[2019-03-01 10:33] LABS: RBC,Pleural Fluid 0.019 M/mcL
--- NOTE | 2019-03-01 10:38 | Anesthesia Evaluation Post Op ---
Date of Encounter: 03/01/19 Time of Encounter: 10:37 - Vital Signs Vital Signs: Vital Signs/O2 Sat, Most Current Temp Pulse Resp BP Pulse Ox 97.6 F 97 19 109/77 94 03/01/19 10:06 03/01/19 10:26 03/01/19 10:26 03/01/19 10:26 03/01/19 10:26 - Lungs Lungs: Rhonchi - Airway Airway: Non-obstructed - Cardiovascular Regular Rate - Mental Status Mental Status: Alert & Oriented, Answers Appropriately - Pain Pain Scale: 1 Pain Scale used: Numeric (1 - 10) - Nausea Vomiting Nausea Vomiting: Not Present - Hydration Hydration: NPO - Discharge PostOp Status: Transfer Patient to floor (fully awake, VSS, no anesthetic complications)
[2019-03-01 10:43] LABS: Appearance of Pleural Fl Cloudy (Clear)
[2019-03-01 10:49] LABS: Total Protein,Pleural Fluid 3.8 g/dL
[2019-03-01 11:10] LABS: Appearance of Body Fluid Clear (Clear); Volume of Body Fluid 20 mL
--- NOTE | 2019-03-01 13:19 | Internal Med Progress Note ---
Hospitalist Progress Note - Encounter Date of Encounter: 03/01/19 Time of Encounter: 13:17 - Subjective Interval History: I have seen and evaluated the patient at bedside. Patient reported feeling better today, but still short of breath. denies chest pain, nausea or vomiting. - Exam Vitals: Temp Pulse Resp BP Pulse Ox 98.1 F 95 18 107/80 96 03/01/19 10:36 03/01/19 10:36 03/01/19 11:39 03/01/19 10:36 03/01/19 11:39 Exam: Vitals: reviewed General: Alert and oriented x4. In mild distress due to shortness of breath. Cardiovascular: RRR, normal S1 & S2, no rubs, murmurs or gallops. Lungs: rales right lower lobe, no wheezing or crackles. Abdomen: Soft, non-tender, no rigidity. NABS in all 4 quadrants Extremities: No edema Neurological: No focal neurological abnormalities Rest of the physical exam is non contributory - Assessment and Plan (1) COPD exacerbation Current Visit: Yes Status: Acute Assessment and Plan: chest is clear to auscultation b/l. dc IV steroids will start a short taper of prednisone 40mg/PO day c/w bronchodilators incentive spirometry (2) Loculated pleural effusion Current Visit: Yes Status: Acute Assessment and Plan: Possible post obstructive pneumonia. patient s/p thoracentesis. fluids sent for analysis. c/w levofloxacin 750mg/IV daily. (3) Hilar mass Current Visit: Yes Status: Acute Assessment and Plan: s/p bronchoscopy: - right hiliar mass - mucus plug was found in the right upper lobe Plan c/w IV antibiotics Hem&onc consulted, recommendations appreciated. (4) Tobacco abuse Current Visit: Yes Status: Acute DVT Prophylaxis: On heparin subq - Time Spent with Patient Total time spent is greater than 50% in coordination of care (as documented) at patient's floor/unit and/or counseling patient: Greater than 35 minutes (45) Plan of Care Discussed with: patient (and the nurse.) Internal Medicine: Result - Labs CBC & Chem 7: 03/01/19 04:56 03/01/19 04:56 Labs: Short CBC 03/01/19 Range/Units 04:56 WBC 16.3 H (4.3-11.1) K/mcL Hgb 11.9 L (12.9-16.9) g/dL Hct 37.4 L (37.5-50.1) % Plt Count 597 H (140-400) K/mcL Neutrophils # 14.5 H (1.6-8.9) K/mcL BMP 03/01/19 04:56 Sodium 136 Potassium 4.0 Chloride 102 Carbon Dioxide 25 BUN 15 Creatinine 0.50 L Glucose 150 H Calcium 9.4 - ABG Interpretation ABG results: PT/INR, D-dimer PT 15.9 Seconds (9.4-12.1) H 02/28/19 15:42 - Impressions Impressions Chest X-Ray 03/01/19 09:08 IMPRESSION: No significant interval change status post reported right thoracentesis. No pneumothorax. D/ / 03/01/2019 09:39:46 Kasey Portillo MD / erich Interpreting Provider: Kasey Portillo MD Thoracentesis 03/01/19 09:47 IMPRESSION: Successful ultrasound guided diagnostic thoracentesis. D/ / Flavio Pierce MD / Flavio Pierce MD Interpreting Provider: Flavio Pierce MD Consult Discharge Plan - Plan Referrals: NONE,PCP [Primary Care Provider] -
[2019-03-01] MEDS: levoFLOXacin 750 MG/150 ML 750 MG/150 ML BAG IVPB SCH (13:25)
--- NOTE | 2019-03-01 13:27 | Oncology Inp Consult Note ---
<Otto Ness - Last Filed: 03/01/19 16:28> Date of Encounter: 03/01/19 - Data of Consult Requesting Physician: Hugo Newton MD Primary Care Provider: PCP NONE Medications and Allergies No Known Home Drugs 02/28/19 [History] Allergy/AdvReac Type Severity Reaction Status Date / Time Penicillins Allergy Unknown Rash Verified 02/28/19 21:50 Consult Discharge Plan - Plan Additional Instructions: please call Dr. Ness office on the day of d/c to make follow up appt . The office will arrange the PET scan for the patient for him from there. [phone] ([facility]) Referrals: NONE,PCP [Primary Care Provider] - Inpatient Charges Provider: Dr. Gris Ness Consult - Inpatient: [id number] - Attending Attestation I examined this patient and my medical decision-making was reviewed with the Advanced Practice Nurse. I agree with the documented findings, disposition and treatment plan as described except to the extent set forth below. I had a nice meeting Mr. Haynes. I reviewed his history, imaging as well as his prior t reatment history and imaging. Patient has developed worsening lymphadenopathy involving the mediastinum as well as right hilar region. Clinically, this is concerning for recurrence of his previous stage III squamous cell carcinoma. Certainly other etiologies include lymphoma as well as a new primary lung cancer. Bronchoscopy and biopsy have been completed today. I requested MRI imaging of brain and he will require outpatient PET CT scan to complete staging. Even if he has localized disease, treatment options and the limited to chemotherapeutics. He received 66 french to this area previously; reirradiation is not feasible. On exam, he is a pleasant thin man who is in no acute distress. He is short of breath. Lungs with diminished breath sounds otherwise clear to auscultation. Heart regular rate and rhythm. Lower extremity is without edema. Neurologic exam is nonfocal <Jerry Boyce Jr - Last Filed: 03/01/19 16:44> Date of Encounter: 03/01/19 Time of Encounter: 13:22 Assessment and Plan (1) Neoplasm of hilus of right lung Status: Acute Assessment and plan: Mr. 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 He would be admitted to the [facility] Emergency Department, where he would ultimately have a new right chest mass. Bronchoscopy and biopsy would demonstrate a locally advanced squamous cell carcinoma. MRI of his brain and PET-CT were negative for metastatic disease and he would be initiated on SWOG protocol concurrent chemoradiotherapy with cisplatin and etoposide on February 19, 2013. Unfortunately on the week of March 04, 2013, he would develop acute loss of balance and eye coordination and with a new cerebrovascular accident, he would receive tPA and was transferred to [facility]. He recovered and was re-initiated on radiation on March 12. He would complete radiation in mid April 2013. He was in regular surveillance from 2012 through December 2016 with no recurrence. He was lost to follow up since that time with [place] oncologist or a PCP. He was admitted to [facility] on 02/28/19 for shortness of breath. Imaging showed right lung mass. CTA at that time showed aasslike opacity within the right hilum and lower lobe which is concerning for malignancy and possibly superimposed infectious process. Loculated right-sided pleural effusion. Pretracheal and subcarinal lymphadenopathy. Also a 1 cm left upper lobe nodule and a 7 mm left lower lobe nodule. Bronchoscopy with Dr Nascimento today showed right hilar mass, BAL and washings of right upper lobe completed today. Clinical presentation concerning for recurrence of his original lung cancer versus new primary. Recommendations: 1. We spoke to patient at length. He understands high likelihood of malignancy versus inflammation/infectious cause. 2. It will take a few days to get pathology results. Once medically stable, he can be discharged if path has not returned. 3. He will need MRI brain for further staging. 3. He will need outpatient PET scan. He will follow up with Dr Otto Ness as outpatient at [facility], and continue care as outpatient. Chemotherapy only reasonable option as he was previously radiated in same region from original diagnosis. Radiation is not feasible if pathology shows malignancy. We appreciate the consult to re-establish his care. Dr Ness assessed patient with me today (2) History of lung cancer Status: Acute - Data of Consult Patient: known to practice within the last 3 years Consult date: 03/01/19 Requesting Physician: Hugo Newton MD Primary Care Provider: PCP NONE - Consult Narrative Reason for consult: new right hilar mass, history lung cancer History of present illness: Mr. Ventura is a very pleasant, 63-year-old gentleman with significant history of tobacco exposure, with history of [id number] lung cancer in [address] Otto Bolden and Dr Bryant. Oncology history He would be admitted to the [facility] Emergency Department, where he would ultimately have a new right chest mass. Bronchoscopy and biopsy would demonstrate a squamous cell carcinoma. MRI of his brain and PET-CT were negative for metastatic disease and he would be initiated on SWOG protocol concurrent chemoradiotherapy with cisplatin and etoposide on February 19, 2013. Unfortunately on the week of March 04 he would develop acute loss of balance and eye coordination and with a new cerebrovascular accident, he would receive tPA and was transferred to [facility]. He recovered and was re-initiated on radiation on March 12. He would complete this in mid April 2013. He was in regular surveillance through December [address] Giovanny Bryant in radiation oncology at [facility]. At that time scans showed no recurrence. He was lost to follow up since that time. He had not seen a PCP or medical or radiation oncologist for continued surveillance. He was admitted to [facility] on 02/28/19 for shortness of breath. Imaging showed right lung mass. Past Med Surg Social Fam HX - Past Medical History Medical history: cancer Additional medical history: right squamous cell lung cancer [id number] - Past Surgical History Surgical History: no surgical history - Social History Smoking Status: Current some day smoker Alcohol use: none Drug use: none Respiratory: Present: cough, dyspnea Oncology - Exam - Constitutional General appearance: cooperative, no acute distress - Head Head exam: Present: normal inspection, normocephalic - Eye Eye exam: Present: PERRL - ENT ENT exam: Present: mucous membranes moist - Neck Neck exam: Present: full ROM - Respiratory Respiratory exam: Present: decreased breath sounds - Cardiovascular Cardiovascular exam: Present: RRR, +S1, +S2 - GI/Abdominal GI/Abdominal exam: Present: normal bowel sounds, soft - Neurological Exam Neurological exam: Present: alert, oriented X3, no focal deficits - Psychiatric Psychiatric exam: Present: normal affect, normal mood - Skin Skin exam: Present: dry, intact, normal color Oncology Inpatient Results Labs: Laboratory Last Values WBC 16.3 K/mcL (4.3-11.1) H 03/01/19 04:56 RBC 4.34 M/mcL (4.19-5.50) 03/01/19 04:56 Hgb 11.9 g/dL (12.9-16.9) L 03/01/19 04:56 Hct 37.4 % (37.5-50.1) L 03/01/19 04:56 MCV 86.2 fL (83.0-100.0) 03/01/19 04:56 MCH 27.4 pg (28.0-33.3) L 03/01/19 04:56 MCHC 31.8 g/dL (31.6-35.5) 03/01/19 04:56 RDW 13.5 % (11.5-14.5) 03/01/19 04:56 Plt Count 597 K/mcL (140-400) H 03/01/19 04:56 MPV 10.2 fL (9.4-12.4) 03/01/19 04:56 Immature Gran % 0.8 % (0-4) 03/01/19 04:56 Seg Neutrophils % 88.7 % 03/01/19 04:56 Lymphocytes % 7.0 % 03/01/19 04:56 Monocytes % 3.4 % 03/01/19 04:56 Eosinophils % 0.0 % 03/01/19 04:56 Basophils % 0.1 % 03/01/19 04:56 Neutrophils # 14.5 K/mcL (1.6-8.9) H 03/01/19 04:56 Lymphocytes # 1.1 K/mcL (0.6-4.6) 03/01/19 04:56 Monocytes # 0.6 K/mcL (0.0-1.3) 03/01/19 04:56 Eosinophils # 0.0 K/mcL (0.0-0.6) 03/01/19 04:56 Basophils # 0.0 K/mcL (0.0-0.2) 03/01/19 04:56 PT 15.9 Seconds (9.4-12.1) H 02/28/19 15:42 INR 1.4 02/28/19 15:42 APTT 32.0 Seconds (26.0-36.0) 02/28/19 15:42 Sodium 136 mEq/L (136-145) 03/01/19 04:56 Potassium 4.0 mEq/L (3.5-5.1) 03/01/19 04:56 Chloride 102 mEq/L (98-107) 03/01/19 04:56 Carbon Dioxide 25 mEq/L (23-29) 03/01/19 04:56 BUN 15 mg/dL (8-23) 03/01/19 04:56 Creatinine 0.50 mg/dL (0.70-1.30) L 03/01/19 04:56 Est GFR ( Amer) > 60 (> 60) 03/01/19 04:56 Est GFR (Non-Af Amer) > 60 (> 60) 03/01/19 04:56 BUN/Creatinine Ratio 30 (6-26) H 03/01/19 04:56 Glucose 150 mg/dL (70-105) H 03/01/19 04:56 Est Mean Plasma Glucose 137 mg/dl 02/28/19 15:42 Hemoglobin A1c 6.4 % (-5.6) H 02/28/19 15:42 Calculated Osmolality 286 (280-300) 03/01/19 04:56 Lactic Acid 1.9 mmol/L (0.5-2.2) 02/28/19 11:01 Calcium 9.4 mg/dL (8.6-10.3) 03/01/19 04:56 Phosphorus 3.5 mg/dL (2.7-4.5) 03/01/19 04:56 Magnesium 2.2 mg/dL (1.6-2.6) 03/01/19 04:56 Troponin I < 0.03 ng/mL (< 0.04) 02/28/19 11:01 B-Natriuretic Peptide 89 pg/mL (Less than 100) 02/28/19 11:01 Procalcitonin 0.18 ng/mL (0.00-0.15) H 03/01/19 04:56 Fluid Source Right Upper Lobe Cheo 03/01/19 10:08 Fluid Volume 20 mL 03/01/19 10:08 Fluid Appearance Clear (Clear) 03/01/19 10:08 Fluid RBC < 0.002 M/mcL (No Ref Range) 03/01/19 10:08 Fld Tot Nucleated Cell 160 TNC/mcL (No Ref Range) 03/01/19 10:08 Pleural Fluid Volume 250.0 mL 03/01/19 09:10 Pleural Appearance Cloudy (Clear) A 03/01/19 09:10 Pleural pH 8.00 pH Units (No Ref Range) 03/01/19 09:10 Pleural RBC 0.019 M/mcL (0.000-0.002) H 03/01/19 09:10 Pleural Tot Nuc Cell 2897 TNC/mcL (0-1000) H 03/01/19 09:10 Pleural Total Protein 3.8 g/dL 03/01/19 09:10 Pleural LDH 641 Units/L (No Ref Range) 03/01/19 09:10 Pleural Glucose 154 mg/dL (No Ref Range) 03/01/19 09:10 Pleural Amylase 15 Units/L (No Ref Range) 03/01/19 09:10
[2019-03-01 14:12] LABS: Basophils,Pleural Fluid 0 %; Eosinophils,Pleural Fluid 0 %; Monocytes,Pleural Fluid 0 %
[2019-03-01 14:23] LABS: Alanine Aminotransferase 50 Units/L (7-52); Albumin 2.7 g/dL (3.5-5.7); Albumin/Globulin Ratio 0.8 (1.1-2.2); Alkaline Phosphatase 125 Units/L (34-104); Aspartate Amino Transferase 38 Units/L (13-39); BUN/Creatinine Ratio 25 (6-26); Bilirubin,Total 0.2 mg/dL (0.3-1.0); Blood Urea Nitrogen 20 mg/dL (8-23); Calcium 9.1 mg/dL (8.6-10.3); Carbon Dioxide 25 mEq/L (23-29); Chloride 99 mEq/L (98-107); Globulin 3.5 g/dL (2.4-3.5); Glucose 373 mg/dL (70-105); Lactate Dehydrogenase 177 Units/L (140-271); Osmolality,Calculated 300 (280-300); Sodium 136 mEq/L (136-145); Total Protein 6.2 g/dL (6.4-8.9); eGFR For African Americans > 60 (> 60); eGFR For Non-African Americans > 60 (> 60)
[2019-03-01] MEDS ORDERED: Gadolinium Contrast Agent (WT Based) IV PRN (16:25)
[2019-03-02] MEDS: Ipratropium/Albuterol Neb 3 ML IH SCH ×7 (03:19→23:18)
[2019-03-02 05:18] LABS: Basophils % 0.1 %; Hematocrit 34.2 % (37.5-50.1); Hemoglobin 10.9 g/dL (12.9-16.9); Immature Granulocytes % 0.8 % (0-4); Mean Corpuscular HGB Conc 31.9 g/dL (31.6-35.5); Mean Corpuscular Hemoglobin 28.2 pg (28.0-33.3); Mean Corpuscular Volume 88.6 fL (83.0-100.0); Mean Platelet Volume 9.2 fL (9.4-12.4); Monocytes % 4.6 %; Neutrophils # 19.2 K/mcL (1.6-8.9); Platelet Count 657 K/mcL (140-400); Red Blood Count 3.86 M/mcL (4.19-5.50); Red Cell Distribution Width 13.6 % (11.5-14.5); Segmented Neutrophils % 85.5 %; White Blood Count 22.4 K/mcL (4.3-11.1)
[2019-03-02] MEDS: *HR* Heparin 5,000 UNIT/ML VIAL SQ SCH ×3 (05:34→22:28)
[2019-03-02 05:37] LABS: BUN/Creatinine Ratio 31 (6-26); Blood Urea Nitrogen 20 mg/dL (8-23); Carbon Dioxide 30 mEq/L (23-29); Chloride 99 mEq/L (98-107); Glucose 106 mg/dL (70-105); Magnesium 2.1 mg/dL (1.6-2.6); Osmolality,Calculated 291 (280-300); Phosphorous 4.1 mg/dL (2.7-4.5); Potassium 3.9 mEq/L (3.5-5.1); Sodium 139 mEq/L (136-145); eGFR For African Americans > 60 (> 60); eGFR For Non-African Americans > 60 (> 60)
--- NOTE | 2019-03-02 09:08 | Pulmonology Progress Note ---
Date of Encounter: 03/02/19 Time of Encounter: 09:07 Assessment and Plan (1) Hilar mass Current Visit: Yes Status: Acute 63-year-old gentleman with past medical non-small cell lung cancer appears to have other a new primary or recurrence of his previous malignancy. Preliminary path is consistent with squamous cell carcinoma pending final cytology. He has a loculated pleural effusion which may be malignant pending cytology given the loculated nature would not be a very good candidate for Pleurx catheter at this time and do not feel that that would be beneficial right now but in the future can reconsider this. He does have pneumonia with features of post-obstruction he is on broad-spectrum antibiotics can likely be de-escalated to a respiratory fluoroquinolone could to complete 8-10 days of therapy based upon final culture and sensitivities. He will need a two-week taper of prednisone for COPD exacerbation please send the patient home on Symbicort 160/4.52 puffs twice a day and that he can have rescue inhaler as well schedule him pulmonary clinic in 2-4 weeks of the time of discharge. He will also need oncology follow-up I see that they have seen him in the inpatient setting and appreciate their evaluation. Pulmonary will sign off please call with any questions (2) Pleural effusion Current Visit: Yes Status: Acute (3) Pneumonia Current Visit: Yes Status: Acute Qualifiers: Laterality: right Lung location: unspecified part of lung Qualified Code(s): J18.9 - Pneumonia, unspecified organism (4) COPD exacerbation Current Visit: Yes Status: Acute (5) History of lung cancer Current Visit: Yes Status: Acute (6) Tobacco abuse Current Visit: Yes Status: Acute Tobacco abuse counseling given Subjective Principal diagnosis: Pneumonia Interval history: Status post bronchoscopy. No untoward side effects. Does have some residual throat pain. His breathing is much better overall. Denies any hemoptysis Objective PUL Vital signs: Last Vital Signs Temp 98.1 F 03/02/19 07:51 Pulse 90 03/02/19 07:51 Resp 16 03/02/19 07:51 BP 139/94 03/02/19 07:51 Pulse Ox 97 03/02/19 07:51 General appearance: no acute distress ENT: oropharynx moist Neck: supple Auscultation: bilateral: clear Cardiovascular: regular rate and rhythm Gastrointestinal: normoactive bowel sounds Extremities: no cyanosis, no edema, no clubbing Musculoskeletal: no deformities normal mental status, non-focal exam mood appropriate Results - Laboratory Findings CBC and BMP: 03/02/19 05:08 03/02/19 05:08 PT/INR, D-dimer PT 15.9 Seconds (9.4-12.1) H 02/28/19 15:42 Abnormal lab findings: Abnormal lab results WBC 22.4 K/mcL (4.3-11.1) H 03/02/19 05:08 RBC 3.86 M/mcL (4.19-5.50) L 03/02/19 05:08 Hgb 10.9 g/dL (12.9-16.9) L 03/02/19 05:08 Hct 34.2 % (37.5-50.1) L 03/02/19 05:08 MCH 27.4 pg (28.0-33.3) L 03/01/19 04:56 Plt Count 657 K/mcL (140-400) H 03/02/19 05:08 MPV 9.2 fL (9.4-12.4) L 03/02/19 05:08 Neutrophils # 19.2 K/mcL (1.6-8.9) H 03/02/19 05:08 PT 15.9 Seconds (9.4-12.1) H 02/28/19 15:42 Sodium 130 mEq/L (136-145) L 02/28/19 11:01 Chloride 95 mEq/L (98-107) L 02/28/19 11:01 Carbon Dioxide 30 mEq/L (23-29) H 03/02/19 05:08 Creatinine 0.65 mg/dL (0.70-1.30) L 03/02/19 05:08 BUN/Creatinine Ratio 31 (6-26) H 03/02/19 05:08 Glucose 106 mg/dL (70-105) H 03/02/19 05:08 Hemoglobin A1c 6.4 % (-5.6) H 02/28/19 15:42 Calculated Osmolality 273 (280-300) L 02/28/19 11:01 Total Bilirubin 0.2 mg/dL (0.3-1.0) L 03/01/19 13:14 Alkaline Phosphatase 125 Units/L (34-104) H 03/01/19 13:14 Serum Total Protein 6.2 g/dL (6.4-8.9) L 03/01/19 13:14 Albumin 2.7 g/dL (3.5-5.7) L 03/01/19 13:14 Albumin/Globulin Ratio 0.8 (1.1-2.2) L 03/01/19 13:14 Procalcitonin 0.18 ng/mL (0.00-0.15) H 03/01/19 04:56 Pleural Appearance Cloudy (Clear) A 03/01/19 09:10 Pleural RBC 0.019 M/mcL (0.000-0.002) H 03/01/19 09:10 Pleural Tot Nuc Cell 2897 TNC/mcL (0-1000) H 03/01/19 09:10 - Microbiology Findings Microbiology Findings: Microbiology, Last 48 Hours 03/01/19 23:05 Legionella Antigen - Final Urine,Clean Catch Streptococcus pneumoniae Antigen (M - Final 03/01/19 10:08 Respiratory Culture - Preliminary Right Upper Lobe Lung 03/01/19 09:10 Body Fluid Culture - Preliminary Pleural Fluid 03/01/19 10:08 Fungal Culture - Preliminary Right Upper Lobe Lung Culture is incubating. 03/01/19 09:10 Fungal Culture - Preliminary Pleural Fluid Culture is incubating. 02/28/19 11:27 Blood Culture - Preliminary Peripheral Venipuncture Culture is incubating and being continuously monitored for growth. Final report to follow. 02/28/19 11:01 Blood Culture - Preliminary Peripheral Venipuncture Culture is incubating and being continuously monitored for growth. Final report to follow. - Clinical Findings Intake & Output: Intake & Output 03/01/19 03/02/19 03/02/19 23:59 07:59 15:59 Intake Total 480 / 480 60 / 60 Balance 480 / 360 60 / 60 Weight 68.8 kg Consult Discharge Plan - Plan Additional Instructions: please call Dr. Ness office on the day of d/c to make follow up appt . The office will arrange the PET scan for the patient for him from there. [phone] ([facility]) Referrals: NONE,PCP [Primary Care Provider] -
[2019-03-02] MEDS: predniSONE 20 MG TABLET PO SCH (10:56)
[2019-03-02] MEDS: levoFLOXacin 750 MG/150 ML 750 MG/150 ML BAG IVPB SCH (10:56)
[2019-03-02 11:21] LABS: Fluid Source for Cholesterol PLEURAL FLUID; Fluid Source for Triglycerides PLEURAL FLUID
[2019-03-02] MEDS: Aspirin Enteric Coated 81 MG Tablet PO SCH (14:38)
[2019-03-02 15:08] LABS: Cholesterol,Body Fluid 48 mg/dL; Triglycerides,Body Fluid 33 mg/dL
--- NOTE | 2019-03-02 15:43 | Internal Med Progress Note ---
Hospitalist Progress Note - Encounter Date of Encounter: 03/02/19 Time of Encounter: 15:40 - Subjective Interval History: I have seen and evaluated the patient at bedside. Patient reported he is feeling better today, denies chest pain, abdominal pain, nausea or vomiting. shortness of breath improving. - Exam Vitals: Temp Pulse Resp BP Pulse Ox 98.1 F 98 18 124/90 100 03/02/19 15:28 03/02/19 15:28 03/02/19 15:28 03/02/19 15:28 03/02/19 15:28 Exam: Vitals: reviewed General: Alert and oriented x4. In mild distress due to back pain Cardiovascular: RRR, normal S1 & S2, no rubs, murmurs or gallops. Lungs: CTA b/l, no wheezing or crackles. Abdomen: Soft, non-tender, no rigidity. NABS in all 4 quadrants Extremities: No edema Neurological: No focal neurological abnormalities Rest of the physical exam is non contributory - Assessment and Plan (1) COPD exacerbation Current Visit: Yes Status: Acute Assessment and Plan: chest is clear to auscultation b/l. Plan: c/w prednisone 40mg/PO day. patient will need 2 weeks taper of oral steroids On bronchodilators Q4RT scheduled. symbicort added c/w incentive spirometry pulmonology recommendations appreciated. O2 qualification study ordered c/w levofloxacin 750mg/IV daily. (2) Loculated pleural effusion Current Visit: Yes Status: Acute Assessment and Plan: Patient s/p thoracentesis. fungal culture: incubation prelim Resp culture and gram stain: no growth, final report pleural fluid culture: no growth, final report Right upper lobe, bronchoalveolar lavage, smear review: Negative for malignant cells Segs: 51% Lymphs: 10% Bronchial cells: 39% (3) Hilar mass Current Visit: Yes Status: Acute Assessment and Plan: Preliminary path is consistent with squamous cell carcinoma pending final cytology. MR brain: negative for mets Plan - scheduled for follow up with Hem&Onc as outpatient (4) Tobacco abuse Current Visit: Yes Status: Acute (5) Pneumonia Current Visit: Yes Status: Acute Assessment and Plan: patient on levofloxacin 750mg/IV daily. (6) Ischemic stroke Current Visit: Yes Status: Acute Assessment and Plan: MR/MR head/brain wo/w con IMPRESSION: 1. Punctate focus of diffusion restriction in the right occipital lobe consistent with acute lacunar infarction. No associated hemorrhage. 2. No intracranial metastatic disease. patient with no focal deficits of neurological abnormalities. TTE: LVEF >70%. Normal LV chamber size, wall thickness and function. Normal left ventricular diastolic function. Normal right ventricular structure and function. No evidence of pulmonary hypertension. No significant valvular dysfunction. Plan started on aspirin 81mg, plus statin lipid panel ordered PT/OT. (7) Leukocytosis Current Visit: Yes Status: Acute Assessment and Plan: likely due to steroids. will continue to monitor. DVT Prophylaxis: On heparin subq for dvt prophylaxis - Summary of Assessment and Plan Summary of Assessment and Plan: Patient to remain in the hospital due to copd exacerbation, pneumonia, improving shortness of breath. Potential discharge tomorrow. pending final thoracentesis fluid analysis report. - Time Spent with Patient Total time spent is greater than 50% in coordination of care (as documented) at patient's floor/unit and/or counseling patient: Greater than 35 minutes (40) Plan of Care Discussed with: patient (and the nurse.) Internal Medicine: Result - Labs CBC & Chem 7: 03/02/19 05:08 03/02/19 05:08 Labs: Short CBC 03/02/19 Range/Units 05:08 WBC 22.4 H (4.3-11.1) K/mcL Hgb 10.9 L (12.9-16.9) g/dL Hct 34.2 L (37.5-50.1) % Plt Count 657 H (140-400) K/mcL Neutrophils # 19.2 H (1.6-8.9) K/mcL BMP 03/02/19 05:08 Sodium 139 Potassium 3.9 Chloride 99 Carbon Dioxide 30 H BUN 20 Creatinine 0.65 L Glucose 106 H Calcium 9.0 - ABG Interpretation ABG results: PT/INR, D-dimer PT 15.9 Seconds (9.4-12.1) H 02/28/19 15:42 - Impressions Impressions Chest X-Ray 03/01/19 09:08 IMPRESSION: No significant interval change status post reported right thoracentesis. No pneumothorax. D/ / 03/01/2019 09:39:46 Kasey Portillo MD / [email or web address] Interpreting Provider: Kasey Portillo MD Echocardiogram 03/01/19 20:55 Impressions: LVEF >70%. Normal LV chamber size, wall thickness and function. Normal left ventricular diastolic function. Normal right ventricular structure and function. No evidence of pulmonary hypertension. No significant valvular dysfunction. Left Ventricular Wall Motion: Rest Echo Findings All wall segments showed normal motion. Findings: Study Quality * Technically adequate exam. ECG Findings * Sinus tachycardia. Left Ventricle * LVEF >70%. * Normal LV chamber size, wall thickness and function. * Normal left ventricular diastolic function. Right Ventricle * Normal right ventricular structure and function. Left Atrium * Normal left atrial size. Right Atrium * Normal right atrial size. Interatrial Septum * Interatrial septum not well evaluated. Aortic Valve * Trileaflet aortic valve. * Mildly sclerotic aortic valve leaflets. * No aortic regurgitation. * No aortic stenosis. Mitral Valve * Normal mitral valve structure and function. * No mitral regurgitation. * No mitral stenosis. Tricuspid Valve * Normal tricuspid valve structure and function. * Trace tricuspid regurgitation. * No evidence of pulmonary hypertension. Pulmonic Valve * Pulmonic valve is not well visualized. * No pulmonic regurgitation. Aorta * Normally sized aortic root. Pericardium * The pericardium appears normal. IVC * Normal IVC dimensions and inspiratory collapse. Pulmonary Artery * Normal visualized portions of the main pulmonary artery. Brain MRI 03/02/19 10:29 IMPRESSION: 1. Punctate focus of diffusion restriction in the right occipital lobe consistent with acute lacunar infarction. No associated hemorrhage. 2. No intracranial metastatic disease. 3. Parenchymal volume loss and sequela of chronic microvascular ischemic changes. 4. 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 The findings were sent to the Radiology Results Communication Center at 10:36 am on 03/02/2019to be communicated to a licensed caregiver. D/ / 03/02/2019 10:40:08 Kait Jordan MD / monik Interpreting Provider: Kait Jordan MD Consult Discharge Plan - Plan Additional Instructions: please call Dr. Ness office on the day of d/c to make follow up appt . The office will arrange the PET scan for the patient for him from there. [phone] ([facility]) Referrals: Otto Ness MD [Partnered Physician] - 03/06/19 10:15 am Tomás Baires DO [Partnered Physician] - 03/12/19 1:00 pm NONE,PCP [Primary Care Provider] - ____ (5) Pneumonia Qualifiers: Pneumonia type: due to unspecified organism Laterality: right Lung location: unspecified part of lung Qualified Code(s): J18.9 - Pneumonia, unspecified organism (7) Leukocytosis Qualifiers: Leukocytosis type: unspecified Qualified Code(s): D72.829 - Elevated white blood cell count, unspecified
[2019-03-02 16:15] LABS: Fluid Source for Albumin PLEURAL FLUID
[2019-03-02] MEDS: Budesonide/Formoterol 160/4.5 1 PUFF INH IH SCH (20:17)
[2019-03-03] MEDS: Ipratropium/Albuterol Neb 3 ML IH SCH ×2 (03:56→07:38)
[2019-03-03 04:32] LABS: Basophils % 0.2 %; Eosinophils % 0.1 %; Hematocrit 35.3 % (37.5-50.1); Hemoglobin 11.1 g/dL (12.9-16.9); Immature Granulocytes % 1.4 % (0-4); Lymphocytes % 14.6 %; Mean Corpuscular HGB Conc 31.4 g/dL (31.6-35.5); Mean Corpuscular Hemoglobin 27.8 pg (28.0-33.3); Mean Corpuscular Volume 88.5 fL (83.0-100.0); Mean Platelet Volume 9.4 fL (9.4-12.4); Monocytes # 0.8 K/mcL (0.0-1.3); Monocytes % 5.8 %; Neutrophils # 10.8 K/mcL (1.6-8.9); Platelet Count 667 K/mcL (140-400); Red Blood Count 3.99 M/mcL (4.19-5.50); Red Cell Distribution Width 13.6 % (11.5-14.5); Segmented Neutrophils % 77.9 %; White Blood Count 13.9 K/mcL (4.3-11.1)
[2019-03-03 04:53] LABS: BUN/Creatinine Ratio 33 (6-26); Blood Urea Nitrogen 17 mg/dL (8-23); Carbon Dioxide 29 mEq/L (23-29); Chloride 97 mEq/L (98-107); Glucose 119 mg/dL (70-105); Magnesium 2.2 mg/dL (1.6-2.6); Osmolality,Calculated 283 (280-300); Phosphorous 3.6 mg/dL (2.7-4.5); Potassium 4.2 mEq/L (3.5-5.1); Sodium 135 mEq/L (136-145); eGFR For African Americans > 60 (> 60); eGFR For Non-African Americans > 60 (> 60)
[2019-03-03] MEDS: *HR* Heparin 5,000 UNIT/ML VIAL SQ SCH (06:29)
[2019-03-03 06:49] VITALS: BP 133/100
[2019-03-03] MEDS: Budesonide/Formoterol 160/4.5 1 PUFF INH IH SCH (07:38)
[2019-03-03] MEDS: levoFLOXacin 750 MG/150 ML 750 MG/150 ML BAG IVPB SCH (07:48)
[2019-03-03] MEDS: Aspirin Enteric Coated 81 MG Tablet PO SCH (07:48)
[2019-03-03] MEDS: predniSONE 20 MG TABLET PO SCH (07:49)
--- NOTE | 2019-03-03 08:42 | Discharge Summary ---
Orders not resulted at time of discharge: Pending orders 02/28/19 11:27 Culture,Blood [BC] Stat 02/28/19 14:43 Sputum Culture [Culture,Sputum with Gram Stain] [RM] Stat 02/28/19 15:00 Albumin,Body Fluid Routine 02/28/19 15:01 AFB Culture, Body Fluid [TB] Routine Fungal Culture [MYC] Routine 02/28/19 16:12 MRSA Surveillance Screen [MOLMIC] Stat 03/01/19 09:10 AFB Smear [TB] Routine Culture,Body Fl,w Gram Stain [RM] Routine 03/01/19 10:08 AFB Culture, Respiratory [TB] Routine AFB Smear [TB] Routine Culture,Respiratory,w Gram St [RM] Routine Fungal Culture [MYC] Routine 03/01/19 10:09 Cytology [PTH] Routine Date of Encounter: 03/03/19 Time of Encounter: 08:39 - Discharge Diagnosis (1) COPD exacerbation Priority: Primary Status: Resolved (2) Loculated pleural effusion Priority: Primary Status: Acute (3) Hilar mass Priority: Primary Status: Acute Assessment and Plan: Preliminary biopsy report, squamous cell carcinoma. (4) Tobacco abuse Priority: Secondary Status: Acute (5) Pneumonia Priority: Primary Status: Acute Qualifiers: Pneumonia type: due to unspecified organism Laterality: right Lung location: unspecified part of lung Qualified Code(s): J18.9 - Pneumonia, unspecified organism (6) Ischemic stroke Priority: Primary Status: Acute (7) Leukocytosis Priority: Secondary Status: Acute Qualifiers: Leukocytosis type: unspecified Qualified Code(s): D72.829 - Elevated white blood cell count, unspecified (8) History of lung cancer Priority: Secondary Status: Chronic (9) Neoplasm of hilus of right lung Priority: Secondary Status: Acute Hospital course: Mr. Ventura is a 63 year old male PMH of non-small cell lung ca, never stopped smoking. tobacco abuse, and CVA. Patient presented to the ED due to shortness of breath. Reported for the past 7-10 days he has been getting progressively more short of breath, stated now he cannot even walk to get his mail without getting short of breath, reported subjective fever and productive cough of white/creamy sputum. CTA done in the ED showed Masslike opacity within the right hilum and lower lobe which is concerning for malignancy and possibly superimposed infectious process. Loculated right-sided pleural effusion. Pretracheal and subcarinal lymphadenopathy. Patient admitted to the hospital due to pneumonia, loculated pleural effusion, copd exacerbation and Hiliar adenopathy. Patient was managed with broad spectrum IV antibiotics and IV steroids. Pulm consulted and patient underwent a Bronchoscopy, preliminary results squamous cell CA. Hem&Onc consulted, patient scheduled to follow up as outpatient. IR consulted and patient underwent thoracentesis, fluid analysis from the thoracentesis: No growth to date. An MRI was ordered for staging purposes IMPRESSION: 1. Punctate focus of diffusion restriction in the right occipital lobe consistent with acute lacunar infarction. No associated hemorrhage. 2. No intracranial metastatic disease. 3. Parenchymal volume loss and sequela of chronic microvascular ischemic changes. 4. 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 Patient acute symptoms on presentation have resolved, and patient is clinically stable to be discharged. Patient is being discharged on oral antibiotics, on 2 weeks of prednisone taper. Recommended to follow-up with pulmonology within 2-3 weeks of hospital discharge. Strongly recommended to follow-up with oncology. - Time Spent with Patient Total time spent providing and/or coordinating discharge services: Time spent: Greater than 30 minutes (35) - Discharge Medications Prescriptions: New Aspirin Enteric Coated [Aspirin EC] 81 mg PO DAILY 30 Days #30 tablet. Atorvastatin [Lipitor] 40 mg PO HS 30 Days #30 tablet Albuterol Sulfate [Proventil Inhaler] 2 puff IH Q4HR 30 Days #2 hfa.aer.ad Budesonide/Formoterol 160/4.5 [Symbicort 160/4.5] 2 puff IH BIDR 30 Days #2 inh levoFLOXacin [Levofloxacin] 750 mg PO DAILY 7 Days #7 tablet Home Medications: Albuterol Sulfate [Proventil Inhaler] 2 puff IH Q4HR 30 Days #2 hfa.aer.ad 03/03/19 [Rx] Aspirin Enteric Coated [Aspirin EC] 81 mg PO DAILY 30 Days #30 tablet. 03/03/19 [Rx] Atorvastatin [Lipitor] 40 mg PO HS 30 Days #30 tablet 03/03/19 [Rx] Budesonide/Formoterol 160/4.5 [Symbicort 160/4.5] 2 puff IH BIDR 30 Days #2 inh 03/03/19 [Rx] levoFLOXacin [Levofloxacin] 750 mg PO DAILY 7 Days #7 tablet 03/03/19 [Rx] Allergies/Adverse Reactions: Allergy/AdvReac Type Severity Reaction Status Date / Time Penicillins Allergy Unknown Rash Verified 02/28/19 21:50 Date of admission: 03/01/19 14:55 Primary care physician: PCP NONE Consults: 02/28/19 14:44 Consult to Pulmonology [CONS] Routine Consulting Provider: Pulm [facility] Ashleigh Reason for Consult: Hx of lung CA. Loculated pleural effusion on CT Call Completed: Yes 02/28/19 14:47 Consult to Interventional Radiology [CONS] Routine Consulting Provider: Radiology Interventional Cols Reason for Consult: loculated pleural effusion. Call Completed: Yes 03/01/19 12:20 Consult to Oncology Hematology [CONS] Routine Consulting Provider: Jerry Boyce Jr Reason for Consult: hiliar mass. Hx of Non-small cell lung cancer. Call Completed: Yes 03/02/19 12:56 Consult to Physical Therapy [CONS] Routine Comment: Evaluate, develop and implement POC Reason for Consult: Acute cva Does patient have active BEDREST order?: No Is patient medically & hemodynamically stable?: Yes 03/02/19 12:57 Consult to Occupational Therapy [CONS] Routine Comment: Evaluate, develop and implement POC Reason for Consult: Acute cva Does patient have active BEDREST order?: No Is patient medically & hemodynamically stable?: Yes - Constitutional Vitals: Temp Pulse Resp BP Pulse Ox 98.2 F 86 18 133/100 93 03/03/19 06:46 03/03/19 06:46 03/03/19 07:40 03/03/19 06:46 03/03/19 07:40 Exam: Vitals: reviewed General: Alert and oriented x4. In no acute distress. Cardiovascular: RRR, normal S1 & S2, no rubs, murmurs or gallops. Lungs: CTA b/l, no wheezing or crackles. Abdomen: Soft, non-tender, no rigidity. NABS in all 4 quadrants Extremities: No edema Neurological: No focal neurological abnormalities Rest of the physical exam is non contributory - Patient Status Disposition: Home, Self-Care Condition: Good Functional capacity at discharge: independent ambulation Overall status at discharge: patient is progressing back to baseline - Discharge Instructions Follow Up With: Otto Ness MD [Partnered Physician] - 03/06/19 10:15 am Tomás Baires DO [Partnered Physician] - 03/12/19 1:00 pm NONE,PCP [Primary Care Provider] - Additional Instructions: please call Dr. Ness office on the day of d/c to make follow up appt . The office will arrange the PET scan for the patient for him from there. [phone] (Nathalie) - Diet and Activity Activity: resume usual activities as tolerated Diet: advance to your usual diet
== END 2019-03-03 11:08 | disposition home or self-care (01) | DRG 180 ==
LOC: 2NENU 10:42 → EMEROOARM 10:42 → 2NENU 14:48 → SUATTDRO 03-01 14:55
PROVIDERS: ADMIT Internal Medicine; ATTEND Internal Medicine

== ENCOUNTER 2019-03-23 20:25 | Inpatient (IN) ==
[2019-03-23] MEDS ORDERED: Azithromycin 500 MG in 0.9 % Sodium Chloride 250 ML IVPB ONE (20:53)
[2019-03-23] MEDS ORDERED: Cefepime HCl 1,000 MG in Water for inj. (sterile) 10 ML IVP STA (20:57)
[2019-03-23] MEDS ORDERED: Clindamycin 900 MG/50 ML 900 MG/50 ML IV.SOLN IVPB ONE (20:57)
[2019-03-23] MEDS ORDERED: 0.9 % Sodium Chloride 1,000 ML IVC ONE ×2 (21:05→21:46)
[2019-03-23] MEDS ORDERED: Metoclopramide 10 MG/2 ML VIAL IVP ONE (21:46)
[2019-03-23] MEDS ORDERED: Naloxone 0.4 MG/ML INJ IVP PRN (23:10)
[2019-03-23] MEDS ORDERED: 0.9 % Sodium Chloride 1,000 ML IVC SCH (23:15)
[2019-03-24] MEDS: *HR* Heparin 5,000 UNIT/ML VIAL SQ SCH ×4 (00:30→22:31)
[2019-03-24] MEDS ORDERED: Cefepime HCl 2,000 MG in 0.9 % Sodium Chloride Mini Bag 100 ML IVPB SCH (04:00)
[2019-03-24] MEDS: Budesonide/Formoterol 160/4.5 1 PUFF INH IH SCH ×2 (07:17→19:52)
[2019-03-24 07:59] LABS: Basophils % 0.1 %; Hematocrit 34.4 % (37.5-50.1); Immature Granulocytes % 0.5 % (0-4); Lymphocytes # 0.9 K/mcL (0.6-4.6); Lymphocytes % 10.8 %; Mean Corpuscular Hemoglobin 27.6 pg (28.0-33.3); Mean Corpuscular Volume 86.4 fL (83.0-100.0); Mean Platelet Volume 10.1 fL (9.4-12.4); Monocytes # 0.5 K/mcL (0.0-1.3); Monocytes % 5.4 %; Neutrophils # 6.9 K/mcL (1.6-8.9); Platelet Count 231 K/mcL (140-400); Red Blood Count 3.98 M/mcL (4.19-5.50); Red Cell Distribution Width 14.5 % (11.5-14.5); Segmented Neutrophils % 83.2 %
[2019-03-24 08:14] LABS: White Blood Count 8.3 K/mcL (4.3-11.1)
[2019-03-24 08:19] LABS: Alanine Aminotransferase 14 Units/L (7-52); Albumin 3.1 g/dL (3.5-5.7); Alkaline Phosphatase 120 Units/L (34-104); Aspartate Amino Transferase 15 Units/L (13-39); BUN/Creatinine Ratio 21 (6-26); Bilirubin,Total 0.2 mg/dL (0.3-1.0); Blood Urea Nitrogen 14 mg/dL (8-23); Calcium 8.6 mg/dL (8.6-10.3); Carbon Dioxide 24 mEq/L (23-29); Chloride 107 mEq/L (98-107); Globulin 3.2 g/dL (2.4-3.5); Glucose 98 mg/dL (70-105); Osmolality,Calculated 288 (280-300); Sodium 139 mEq/L (136-145); Total Protein 6.3 g/dL (6.4-8.9); eGFR For African Americans > 60 (> 60); eGFR For Non-African Americans > 60 (> 60)
[2019-03-24] MEDS: Aspirin Enteric Coated 81 MG Tablet PO SCH (09:05)
[2019-03-24] MEDS ORDERED: methylPREDNISolone 125 MG/2 ML VIAL IVP ONE (11:07)
[2019-03-24] MEDS ORDERED: Aminoglycoside Consult 1 EACH MC ONE (13:29)
[2019-03-24] MEDS: Ipratropium/Albuterol Neb 3 ML IH SCH ×3 (14:55→19:54)
[2019-03-24] MEDS: MethylPREDNISolone 40 MG/ML VIAL IVP SCH (20:03)
[2019-03-24] MEDS: *HR* HYDROcodone/Acet 7.5/325 mg TABLET PO PRN (20:10)
[2019-03-24] MEDS ORDERED: BuPROPion SR (12 HR) 150 MG TABLET PO SCH (21:00)
[2019-03-24] MEDS ORDERED: Budesonide/Formoterol 160/4.5 1 PUFF INH IH SCH (22:00)
[2019-03-24] MEDS ORDERED: Azithromycin 500 MG in 0.9 % Sodium Chloride 250 ML IVPB SCH (23:45)
[2019-03-25] MEDS: Ipratropium/Albuterol Neb 3 ML IH SCH ×4 (00:02→10:48)
[2019-03-25 03:10] VITALS: BP 127/74
[2019-03-25] MEDS: *HR* Heparin 5,000 UNIT/ML VIAL SQ SCH (04:20)
[2019-03-25] MEDS: MethylPREDNISolone 40 MG/ML VIAL IVP SCH ×2 (04:20→10:35)
[2019-03-25] MEDS: *HR* HYDROcodone/Acet 7.5/325 mg TABLET PO PRN ×2 (04:26→10:34)
[2019-03-25 05:26] LABS: Hematocrit 33.6 % (37.5-50.1); Hemoglobin 10.8 g/dL (12.9-16.9); Mean Corpuscular HGB Conc 32.1 g/dL (31.6-35.5); Mean Corpuscular Hemoglobin 27.7 pg (28.0-33.3); Mean Corpuscular Volume 86.2 fL (83.0-100.0); Mean Platelet Volume 10.4 fL (9.4-12.4); Platelet Count 238 K/mcL (140-400); Red Cell Distribution Width 14.7 % (11.5-14.5)
[2019-03-25 05:45] LABS: BUN/Creatinine Ratio 25 (6-26); Blood Urea Nitrogen 17 mg/dL (8-23); Calcium 8.7 mg/dL (8.6-10.3); Carbon Dioxide 23 mEq/L (23-29); Chloride 106 mEq/L (98-107); Glucose 167 mg/dL (70-105); Osmolality,Calculated 287 (280-300); Potassium 3.8 mEq/L (3.5-5.1); Sodium 136 mEq/L (136-145); eGFR For African Americans > 60 (> 60); eGFR For Non-African Americans > 60 (> 60)
[2019-03-25] MEDS: Budesonide/Formoterol 160/4.5 1 PUFF INH IH SCH (07:28)
[2019-03-25] MEDS: Aspirin Enteric Coated 81 MG Tablet PO SCH (08:15)
[2019-03-25] MEDS ORDERED: FLU Vac QV 19-20 (6Month+)/PF 0.5 ML SYRINGE IM ONE (12:25)
== END 2019-03-25 13:30 | disposition home or self-care (01) | DRG 190 ==
LOC: 3ANU 20:25 → EMEROOARM 20:25 → 3ANU 22:48
PROVIDERS: ADMIT Internal Medicine; ATTEND Internal Medicine